=== PATIENT | male | born 2000 | race Two or more races ===

== ENCOUNTER 2019-12-29 18:46 | Emergency (ER) | payer MEDICAID ==
[~2019-12-29] VITALS: Ht 175.3 cm; Wt 104.5 kg
[2019-12-29] MEDS ORDERED: BACITRACIN 0.9 GM PACKET OINTMENT TP ONE (19:30)
[2019-12-29] MEDS ORDERED: LIDOCAINE 1% 10 ML VIAL INJ ONE (19:30)
[2019-12-29 20:05] VITALS: BP 134/68
== END 2019-12-29 20:32 | disposition home or self-care (01) ==
LOC: EMS 18:48
DX: S61.012A Laceration without foreign body of left thumb without damage to nail, initial encounter (principal); S00.83XA Contusion of other part of head, initial encounter; Z91.010 Allergy to peanuts; Y04.2XXA Assault by strike against or bumped into by another person, initial encounter; Y93.89 Activity, other specified; Y92.89 Other specified places as the place of occurrence of the external cause; Y99.8 Other external cause status
CPT/HCPCS: 12001; 99283; J3490